=== PATIENT | female | born 1970 | race African-American/Black ===

== ENCOUNTER → 2017-08-19 | Outpatient (CLI) | payer OTHER ==
--- NOTE | 2017-08-19 10:07 | RAD ---
Examination: Left knee, four views History: Pain Findings: No evidence for fracture, dislocation, bone destruction or synovial effusion. Joint spaces are maintained. Impression: No significant or acute abnormality noted. Reported By:
== END ==
LOC: RAD 08:23
PROVIDERS: ATTEND Specialist
DX: M25.561 Pain in right knee (principal)
CPT/HCPCS: 73560

== ENCOUNTER → 2018-01-02 | Outpatient (CLI) | payer OTHER ==
[2018-01-02 14:06] LABS: BILIRUBIN,URINE NEGATIVE (NEGATIVE); BLOOD/HEMOGLOBIN,URINE NEGATIVE (NEGATIVE); GLUCOSE, URINE NEGATIVE (NEGATIVE); KETONES,URINE NEGATIVE (NEGATIVE); LEUKOCYTE ESTERASE ,URINE NEGATIVE (NEGATIVE); NITRITES,URINE NEGATIVE (NEGATIVE); PROTEIN,URINE NEGATIVE (NEGATIVE); UROBILINOGEN,URINE NORMAL (NORMAL)
[2018-01-02 14:07] LABS: BASOPHILS # (AUTO) 0.1 X10^3/uL (0.0-0.1); BASOPHILS % (AUTO) 1.1 % (0.2-1.0); EOSINOPHILS % (AUTO) 0.4 % (0.9-2.9); HEMATOCRIT 44.5 % (36.0-47.0); HEMOGLOBIN 15.3 g/dL (12.0-16.0); LYMPHOCYTES # (AUTO) 1.9 X10^3/uL (1.3-2.9); LYMPHOCYTES % (AUTO) 26.6 % (21.0-51.0); MEAN CORPUSCULAR HEMOGLOBIN 27.8 pg (27.0-34.0); MEAN CORPUSCULAR HGB CONC 34.3 g/dL (33.0-35.0); MEAN CORPUSCULAR VOLUME 81.2 fL (80.0-100.0); MEAN PLATELET VOLUME 7.3 fL (7.4-11.0); MONOCYTES # (AUTO) 0.5 x10^3/uL (0.3-0.8); MONOCYTES % (AUTO) 6.2 % (0.0-13.0); NEUTROPHILS # (AUTO) 4.8 x10^3/uL (2.2-4.8); NEUTROPHILS % (AUTO) 65.7 % (42.0-75.0); PLATELET COUNT 364 X10^3/uL (150.0-450.0); RED BLOOD COUNT 5.48 X10^6/uL (3.5-5.4); RED CELL DISTRIBUTION WIDTH 15.2 % (11.6-16.5); WHITE BLOOD COUNT 7.3 X10^3/uL (3.6-10.0)
[2018-01-02 14:08] LABS: APPEARANCE,URINE CLEAR (CLEAR); COLOR,URINE YELLOW (YELLOW)
[2018-01-02 14:21] LABS: ALANINE AMINOTRANSFERASE 34 Units/L (12-78); ALBUMIN 4.2 g/dL (3.4-5.0); ALKALINE PHOSPHATASE 57 Units/L (46-116); ASPARTATE AMINO TRANSFERASE 15 Units/L (15-37); BLOOD UREA NITROGEN 11 mg/dL (7-18); CALCIUM 8.9 mg/dL (8.5-10.1); CARBON DIOXIDE 30.4 mmol/L (21-32); CHLORIDE 98 mmol/L (98-107); COR NA(FOR HYPERGLY) 137 mmol/L (136-145); SODIUM 136 mmol/L (136-145); eGFR BLACK RACES > 60 (>60); eGFR NON BLACK RACES > 60 (>60)
--- NOTE | 2018-01-02 14:41 | RAD ---
Exam: Chest two views History: 47-year-old female with planned knee surgery. Evaluate for anesthesia risk. Hypertension. Comparison: None Findings: Heart size and pulmonary vasculature are normal. But interstitial prominence is noted bilat erally. However no sign of acute superimposed infiltrate or pleural effusion on either side. Impression: Doubt acute cardiopulmonary abnormality. Reported By:
[2018-01-02 14:56] LABS: ERYTHROCYTE SEDIMENTATION RATE 9 MM/HOUR (0-20)
== END ==
LOC: LAB 13:23
PROVIDERS: ATTEND Orthopaedic Surgery
DX: Z01.818 Encounter for other preprocedural examination (principal); Z01.810 Encounter for preprocedural cardiovascular examination; Z01.811 Encounter for preprocedural respiratory examination; Z79.899 Other long term (current) drug therapy; Z11.8 Encounter for screening for other infectious and parasitic diseases; S83.242A Other tear of medial meniscus, current injury, left knee, initial encounter; X58.XXXA Exposure to other specified factors, initial encounter; B95.7 Other staphylococcus as the cause of diseases classified elsewhere
CPT/HCPCS: 36415; 71046; 80053; 81003; 85025; 85652; 86140; 87640; 87641; 93005; 93010

== ENCOUNTER 2018-01-04 07:07 | Day surgery (SDC) | payer OTHER ==
[2018-01-04] MEDS ORDERED: D5 LR 1000 ML 1,000 ML IV ONE (07:14)
[2018-01-04] MEDS ORDERED: ADRENALINE CHL INJ ONE (07:43)
[2018-01-04] MEDS: ANCEF 1 GM IV PREMIX* 2 GM/100 ML BAG IV ONE ×2 (08:02→08:30)
[2018-01-04] MEDS ORDERED: XYLOCAINE 1% and EPINEPHRINE 1:100,000 ONE (08:08)
[2018-01-04] MEDS ORDERED: MARCAINE 0.25% INJ ONE (08:08)
[2018-01-04] MEDS ORDERED: BACTROBAN OINT ONE (08:08)
[2018-01-04] MEDS ORDERED: FENTANYL INJ 100 mcg ONE ×2 (08:21→09:13)
[2018-01-04] MEDS ORDERED: NS IRRIGATION 3000 ML 3,000 ML IR ONE ×2 (09:10)
[2018-01-04] MEDS: DILAUDID INJ ONE ×4 (09:14→10:15)
[2018-01-04] MEDS ORDERED: KENALOG INJ 40 MG IM ONE (09:50)
[2018-01-04] MEDS ORDERED: DIPRIVAN VIAL ONE (09:58)
[2018-01-04] MEDS ORDERED: QUELICIN (OR ANECTINE) ONE (09:58)
[2018-01-04] MEDS ORDERED: ZOFRAN INJ 4 MG VIAL ONE (09:58)
[2018-01-04] MEDS ORDERED: XYLOCAINE 2 % (PLAIN) ONE (09:58)
[2018-01-04] MEDS ORDERED: SUPRANE IN ONE (09:58)
[2018-01-04] MEDS ORDERED: VERSED ONE (09:58)
[2018-01-04] MEDS ORDERED: LTA KIT LIDOCAINE 4% ONE (09:58)
[2018-01-04] MEDS ORDERED: DILAUDID INJ ONE (10:25)
[2018-01-04] MEDS ORDERED: PERCOCET TAB 5/325 MG PO PRN (10:41)
[2018-01-04] MEDS ORDERED: ZOFRAN INJ 4 MG VIAL IVP PRN (10:41)
[2018-01-04] MEDS ORDERED: PERCOCET TAB 5/325 MG ONE (11:02)
[2018-01-04 11:50] VITALS: BP 129/77
--- NOTE | 2018-01-10 11:57 | OR.GENERIC ---
Post-Op Note Generic - Post-Op Note Operative Report: DATE OF OPERATION: 01/04/18 PREOPERATIVE DIAGNOSIS: ~ LEFT knee medial meniscal tear. POSTOPERATIVE DIAGNOSIS: ~ LEFT knee medial meniscal tear. 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 OPERATION PERFORMED: 1. LEFT knee arthroscopy with partial medial meniscectomy. 2. LEFT knee chondroplasty of the medial and patellofemoral compartment. ANESTHESIA: ~ General with endotracheal tube intubation. ESTIMATED BLOOD LOSS: ~ Minimal. COMPLICATIONS: ~ None. INDICATIONS FOR OPERATION: ~ The patient is a 47-year-old female with a history of LEFT knee pain. she had injury into her LEFT knee and was diagnosed with LEFT knee medial meniscal tear. She has seen Dr. MENDES in the past and was treated with multiple CORTISONE injections. She also tried braces as well as physical therapy which did not help her. After failure of conservative management she wanted to proceed with an surgical arthroscopic procedure. She was taken through the procedure in detail. Risks and benefits were discussed with her. Magnetic resonance imaging also showed chondromalacia involving the medial as well as the patellofemoral compartment. So the possibility of continued pain, need for a total knee replacement or any of the procedure and the future was discussed with her. After discussion of the risks and benefits of surgery including but no limited to continued pain, DVT and PE, infection or need for additional surgery, the patient opted to move forward with elective LEFT knee arthroscopy with possible meniscectomy and chondroplasty. DESCRIPTION OF OPERATION: ~ The patient was met in the preoperative holding area. Correct patient, correct side, as well as planned procedure was verified. The skin was marked by me. She was also met by Anesthesia. They confirmed correct patient and correct side. At this point, the patient was brought to the operating room and placed on the operative table in the supine position. Care was taken to pad any bony prominences. Two grams of antibiotics, namely Ancef, was given one hour before the surgical incision. At this point, anesthesia was induced without issue. The patients correct side was verified. The knee was examined for range of motion and laxity. was able to extend knee completely. Stable to ML and AP stress. A nonsterile tourniquet was applied to thigh. Care was taken to pad the tourniquet well. The LEFT thigh was placed in a arthroscopic thigh murphy. the RIGHT leg was placed in a well legged murphy. Leg was then prepped and draped in usual sterile fashion. Prior to completion of prepping and draping, the foot plate of the bed was dropped such that the patients leg was free. The bed was raised to appropriate height. After prepping and draping, time-out was performed. Correct patient, correct status, as well as planned procedure was again verified. Verification was again made of antibiotics given. A proximal thigh tourniquet was placed and an Esmarch bandage was used to exsanguinate the limb. At this point, a lateral parapatellar incision was planned using the sterile marker. Using the 15 blades, incision was made through skin and underlying subcutaneous tissue, carrying to the capsule. The knee was extended while the arthroscopic obturator was placed through the lateral portal. This was carried up underneath the patient patella. The camera was then placed and correct joint placement was confirmed. The joint was filled with sterile normal saline. Inspection of the patella was carried out. suprapatellar pouch showed signs synovitis. Grade 2 chondromalacia changes under the undersurface of patella as well as trochlea was noted. Fibrillations were noted underneath the patella articular surface. The scope was then brought down to lateral gutter and no loose bodies were identified.popliteus tendon was normal. scope was brought into the medial compartment, a medial portal was established in usual fashion, that is using a spinal needle to identify appropriate location of the portal followed by 15 blade through the skin and subcutaneous tissue and capsule and followed by the obturator followed by the arthroscopic probe. It was brought into the medial compartment such that the meniscus could be evaluated.the posterior horn medial meniscus was evaluated with the knee in valgus stress and about 40 of flexion. Unstable radial tear was noted in the posterior horn medial meniscus. It was probed. Meniscotome was used to complete the partial meniscectomy to a stable edge. A shaver was brought in to smoothen the edges. Using the probe, the edge was evaluated and noted to be stable. Care was taken to remove any loose meniscal tissue from the joint space. 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 there were areas which had a complete cartilage loss and subchondral bone was exposed in the distal femur. chondroplasty was completed with a shaver . At this point, the scope was brought across the central portion of the joint. The ACL was identified. This was noted to be intact. imb was brought into a figure- of-four and the Scope was then moved to the lateral compartment. There was noted to be moderate amount of fraying along the inner edge of the lateral meniscus. No distinct tear was identified. This fraying was debrided using arthroscopic shaver. The camera was then brought through the lateral gutter, and there was no noted foreign bodies identified. This was brought back to the patellofemoral space. chondroplasty was performed on the articular surface of the patella as well as the trochlea. Copious amounts of irrigation were then run through the patients joint, again making sure not to leave behind any loose bodies. The tourniquet was released. There was no significant bleeding. Once irrigation was complete, the knee joint was then drained and portals were closed using 3-0 nylon. A dry sterile dressing was applied. The patient was then awakened from anesthesia and transferred to the operating room stretcher. There were no complications. All counts were correct x2 at the end of the case. The wounds were dressed with sterile bandages and a compression wrap from the toes to the mid-thigh was placed. The patient was transferred off of the operating table back to a hospital stretcher and taken to the recovery room in fair condition. There was no evidence of any neuro vascular deficit. POSTOPERATIVE PLAN: The patient will be permitted weightbearing as tolerated and is encouraged to frequently flex and extend the knee as well as his ankle. Crutches will be provided for her if she is unable to ambulate without the use of these assistive devices. Appropriate oral analgesics and oral anti-inflammatory medications will be provided for the patient. The patient was instructed on ice and elevation to the limb. he will follow up in my office in approximately 6 days for postoperative consultation, wound examination, suture removal, and institution of more formalized physical therapy.
== END 2018-01-04 11:50 | disposition home or self-care (01) | DRG 489 ==
LOC: SURG1 07:07
PROVIDERS: ATTEND Orthopaedic Surgery
PROC: 0SBD4ZZ Excision of Left Knee Joint, Percutaneous Endoscopic Approach (ICD-10-PCS; principal; 2018-01-04 08:30)
DX: S83.242A Other tear of medial meniscus, current injury, left knee, initial encounter (principal); X58.XXXA Exposure to other specified factors, initial encounter; M94.29 Chondromalacia, multiple sites
CPT/HCPCS: A4222; S0020; J0170; J0330; J0690; J1170; J2001; J2250; J2405; J3010; J3301; J3490; J7120